=== PATIENT | female | born 2000 | race Caucasian/White ===

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

== ENCOUNTER 2019-07-08 10:50 | Emergency (ER) | payer MEDICAID ==
[~2019-07-08] VITALS: Ht 162.6 cm; Wt 64.0 kg
[~2019-07-08 10:50] MED LIST changes: +HYDR-4383 PO; -HYDR-569 PO; +ONDA8TAB9 PO
[2019-07-08 11:21] VITALS: BP 97/58
[2019-07-08] MEDS ORDERED: AMOX500C2 PO (11:57)
== END 2019-07-08 12:08 | disposition home or self-care (01) ==
LOC: ER 10:51
DX: O99.513 Diseases of the respiratory system complicating pregnancy, third trimester (principal); J20.9 Acute bronchitis, unspecified; J06.9 Acute upper respiratory infection, unspecified; O9A.213 Injury, poisoning and certain other consequences of external causes complicating pregnancy, third trimester; F12.90 Cannabis use, unspecified, uncomplicated; O99.333 Smoking (tobacco) complicating pregnancy, third trimester; F17.299 Nicotine dependence, other tobacco product, with unspecified nicotine-induced disorders; Z3A.30 30 weeks gestation of pregnancy
CPT/HCPCS: 99283; 99406

== ENCOUNTER 2019-08-30 23:44 | Emergency (ER) | payer MEDICAID ==
[~2019-08-30] VITALS: Ht 162.6 cm; Wt 59.1 kg
[2019-08-31] MEDS ORDERED: PENI500T2 PO (00:47)
[2019-08-31 01:08] VITALS: BP 118/72
[2019-08-31] MEDS ORDERED: HYDR-4383 PO (01:13)
[2019-08-31] MEDS ORDERED: HYDROcodone/acetaminophen 5mg/325mg tablet PO ONE (01:20)
== END 2019-08-31 01:32 | disposition home or self-care (01) ==
LOC: ER 23:45
DX: K04.7 Periapical abscess without sinus (principal); F10.99 Alcohol use, unspecified with unspecified alcohol-induced disorder; F12.90 Cannabis use, unspecified, uncomplicated; Z86.69 Personal history of other diseases of the nervous system and sense organs; Z79.899 Other long term (current) drug therapy; Y90.9 Presence of alcohol in blood, level not specified
CPT/HCPCS: 99283

== ENCOUNTER 2020-06-17 15:27 | Outpatient (CLI) | payer MEDICAID | END 2020-06-17 23:59 | disposition home or self-care (01) | LOC: RAD 15:27 | PROVIDERS: ATTEND Nurse Practitioner Family | DX: N83.02 Follicular cyst of left ovary (principal); N83.01 Follicular cyst of right ovary | CPT/HCPCS: 76830; 76856; 93976 ==

== ENCOUNTER 2021-01-01 01:36 | Emergency (ER) | payer MEDICAID ==
[~2021-01-01] VITALS: Ht 162.6 cm; Wt 68.2 kg
[2021-01-01 01:41] VITALS: BP 135/82
[2021-01-01] MEDS ORDERED: PENI500T2 PO (02:39)
[2021-01-01] MEDS ORDERED: ketorolac trometh. 30mg/ml inj. IM ONE (02:40)
[2021-01-01] MEDS ORDERED: penicillin V potassium 500mg tablet PO ONE (02:40)
== END 2021-01-01 03:30 | disposition home or self-care (01) ==
LOC: ER 01:36
DX: K05.10 Chronic gingivitis, plaque induced (principal); F17.200 Nicotine dependence, unspecified, uncomplicated; F12.90 Cannabis use, unspecified, uncomplicated; Z86.69 Personal history of other diseases of the nervous system and sense organs; Z72.89 Other problems related to lifestyle; Z79.899 Other long term (current) drug therapy
CPT/HCPCS: 96372; 99283; J1885

== ENCOUNTER 2021-01-16 00:02 | Emergency (ER) | payer MEDICAID ==
[~2021-01-16] VITALS: Ht 162.6 cm; Wt 72.7 kg
[~2021-01-16 00:02] MED LIST changes: +PENI500T2 PO
[2021-01-16] MEDS ORDERED: ketorolac trometh. 30mg/ml inj. IM ONE (00:55)
[2021-01-16] MEDS ORDERED: IBUP-1984 PO (00:57)
[2021-01-16] MEDS ORDERED: PENI500T2 PO (00:57)
[2021-01-16 01:37] VITALS: BP 108/71
== END 2021-01-16 01:38 | disposition home or self-care (01) ==
LOC: ER 00:03
DX: K02.9 Dental caries, unspecified (principal); F12.90 Cannabis use, unspecified, uncomplicated
CPT/HCPCS: 96372; 99283; J1885

== ENCOUNTER → 2021-02-22 | Emergency (ER) | payer MEDICAID ==
[~2021-02-22] MED LIST changes: -PENI500T2 PO
== END | disposition left against medical advice (07) ==
LOC: ER 18:31
DX: M25.519 Pain in unspecified shoulder (principal); Z53.21 Procedure and treatment not carried out due to patient leaving prior to being seen by health care provider

== ENCOUNTER 2021-07-09 10:02 | Emergency (ER) | payer MEDICAID ==
[~2021-07-09] VITALS: Ht 162.6 cm; Wt 68.2 kg
[2021-07-09] MEDS ORDERED: mag hydrox/Alum hydrox/simeth 30ml oral suspension PO ONE (10:15)
[2021-07-09] MEDS ORDERED: ketorolac trometh. 30mg/ml inj. IM ONE (10:15)
[2021-07-09] MEDS ORDERED: dexamethasone sod phosphate 10mg/ml inj PO STA (10:15)
[2021-07-09] MEDS ORDERED: AZIT-63 PO (11:53)
[2021-07-09] MEDS ORDERED: BENZ-16 PO (11:53)
[2021-07-09 12:31] VITALS: BP 132/75
== END 2021-07-09 12:35 | disposition home or self-care (01) ==
LOC: ER 10:03
DX: J20.9 Acute bronchitis, unspecified (principal); F12.10 Cannabis abuse, uncomplicated; Z79.899 Other long term (current) drug therapy; Z20.822 Contact with and (suspected) exposure to COVID-19
CPT/HCPCS: 87635; 96372; 99283; C9803; J1100; J1885

== ENCOUNTER 2021-07-16 09:11 | Emergency (ER) | payer MEDICAID ==
[~2021-07-16] VITALS: Ht 162.6 cm; Wt 75.0 kg
[~2021-07-16 09:11] MED LIST changes: +AZIT-63 PO; +BENZ-16 PO
[2021-07-16 09:25] VITALS: BP 110/73
[2021-07-16] MEDS ORDERED: diazepam 5mg tablet PO ONE (10:10)
[2021-07-16] MEDS ORDERED: ketorolac trometh inj. 60 MG/2 ML VIAL IM ONE (10:10)
[2021-07-16] MEDS ORDERED: CYCL-394 PO (11:01)
[2021-07-16] MEDS ORDERED: MELO-102 PO (11:01)
== END 2021-07-16 11:23 | disposition home or self-care (01) ==
LOC: ER 09:12
DX: M54.2 Cervicalgia (principal); F12.10 Cannabis abuse, uncomplicated; Z79.899 Other long term (current) drug therapy
CPT/HCPCS: 96372; 99283; J1885

== ENCOUNTER 2022-02-11 08:57 | Emergency (ER) | payer MEDICAID ==
[~2022-02-11] VITALS: Ht 162.6 cm; Wt 72.7 kg
[~2022-02-11 08:57] MED LIST changes: -AZIT-63 PO; -BENZ-16 PO; +MELO-102 PO
[2022-02-11] MEDS ORDERED: TAM75C PO (11:44)
[2022-02-11 11:57] VITALS: BP 110/87
== END 2022-02-11 11:58 | disposition home or self-care (01) ==
LOC: ER 08:58
DX: J10.1 Influenza due to other identified influenza virus with other respiratory manifestations (principal); Z20.822 Contact with and (suspected) exposure to COVID-19; R06.02 Shortness of breath; R05.9 Cough, unspecified; R19.7 Diarrhea, unspecified; R50.9 Fever, unspecified; F12.90 Cannabis use, unspecified, uncomplicated; Z86.69 Personal history of other diseases of the nervous system and sense organs; Z72.89 Other problems related to lifestyle; Z79.2 Long term (current) use of antibiotics; Z79.899 Other long term (current) drug therapy
CPT/HCPCS: 87502; 87503; 87635; 99283; C9803

== ENCOUNTER 2022-04-10 12:13 | Emergency (ER) | payer MEDICAID ==
--- NOTE | 2022-04-10 15:32 | NUR ---
not in lobby, 1343, 2916, 1534
[2022-04-11] MEDS ORDERED: ACET-1008 PO (22:14)
== END 2022-04-10 15:35 | disposition left against medical advice (07) ==
LOC: ER 12:14
DX: M25.569 Pain in unspecified knee (principal); Z53.21 Procedure and treatment not carried out due to patient leaving prior to being seen by health care provider

== ENCOUNTER 2022-04-11 20:09 | Emergency (ER) | payer MEDICAID ==
[~2022-04-11] VITALS: Ht 162.6 cm; Wt 75.0 kg
[2022-04-11 20:12] VITALS: BP 100/63
[2022-04-11] MEDS ORDERED: ACET-1008 PO (22:14)
== END 2022-04-11 22:16 | disposition home or self-care (01) ==
LOC: ER 20:10
DX: S89.81XA Other specified injuries of right lower leg, initial encounter (principal); M30.3 Mucocutaneous lymph node syndrome [Kawasaki]; W10.9XXA Fall (on) (from) unspecified stairs and steps, initial encounter; Y93.89 Activity, other specified; Y92.89 Other specified places as the place of occurrence of the external cause; Y99.8 Other external cause status
CPT/HCPCS: 29505; 29530; 73564; 99284

== ENCOUNTER 2024-04-04 13:59 | Emergency (ER) | payer SELFPAY ==
[~2024-04-04] VITALS: Ht 165.1 cm; Wt 80.6 kg
[~2024-04-04 13:59] MED LIST changes: +BENZ9GEL TOP; +CLIN-214 PO; -CLIN150C8 PO
[2024-04-04 14:11] VITALS: BP 110/64; PULSE 65; O2SAT 96
[2024-04-04] MEDS ORDERED: NAPR-56 PO (14:52)
[2024-04-04] MEDS ORDERED: DOXY-1 PO (14:52)
[2024-04-04 14:55] VITALS: RESP 18; TEMP 98.2
== END 2024-04-04 14:55 | disposition home or self-care (01) ==
LOC: ER 14:00
DX: K04.7 Periapical abscess without sinus (principal); F12.90 Cannabis use, unspecified, uncomplicated; Z79.899 Other long term (current) drug therapy; Z79.2 Long term (current) use of antibiotics; Z79.1 Long term (current) use of non-steroidal anti-inflammatories (NSAID)
CPT/HCPCS: 99283

== ENCOUNTER 2024-07-18 19:49 | Emergency (ER) | payer SELFPAY ==
[~2024-07-18] VITALS: Ht 167.6 cm; Wt 79.1 kg
[2024-07-18 19:59] VITALS: PULSE 71
[2024-07-18] MEDS ORDERED: LIDOcaine/epinephrine/tetracaine TOPICAL sol 3 ML syringe TOP ONE (20:20)
[2024-07-18 21:18] VITALS: BP 143/78; RESP 16; TEMP 98.2; O2SAT 100
== END 2024-07-18 21:20 | disposition home or self-care (01) ==
LOC: ER 19:49
DX: S05.32XA Ocular laceration without prolapse or loss of intraocular tissue, left eye, initial encounter (principal); F12.90 Cannabis use, unspecified, uncomplicated; Z79.2 Long term (current) use of antibiotics; Z79.899 Other long term (current) drug therapy; Z79.1 Long term (current) use of non-steroidal anti-inflammatories (NSAID); Z72.89 Other problems related to lifestyle; W18.2XXA Fall in (into) shower or empty bathtub, initial encounter; Y93.89 Activity, other specified; Y92.89 Other specified places as the place of occurrence of the external cause; Y99.8 Other external cause status
CPT/HCPCS: 12011; 99284